=== PATIENT | male | born 1950 | race Caucasian/White ===

== ENCOUNTER → 2018-08-14 15:06 | Outpatient (CLI) | payer BC, MEDICARE, SELFPAY ==
--- NOTE | 2018-08-14 | DI.ECHO.S_ITS ---
[facility]---------+ [facility] +---------+ : : [address] : [address] : : : : [address] : : : : Phone: [phone]+ Echocardiogram Report + + :Name: KIT GAGE Study Date: 08/14/2018 Height: 69 in : :[facility] Weight: 177 lb : : Gender: Male BSA: 2.0 m2 : :: 1950 Age: 68 yrs BP: 140/72 mmHg: :Reason For Study: ASHD : :Ordering Physician: Damon : :Niels New Performed By: Ester Benitez : :Referring: Dr. Qian May : + + Interpretation Summary 1) Mildly enlarged left ventricle with mildly to moderately reduced systolic function (EF 40-45%). 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 3) Grossly, normal right ventricular size and function. 4) Mild aortic regurgitation present. 5) Compared to the Echo done done 02/18/2018, LVEF has improved from 35-40% to 40-45% on this study. Procedure: A two-dimensional transthoracic echocardiogram with color flow and Doppler was performed. The study quality was technically adequate. Comparison is made with the echocardiogram of 02-18-18. The patient was in normal sinus rhythm during the exam. Left Ventricle: The left ventricle is mild-moderately dilated. There is normal left ventricular wall thickness. Left ventricular systolic function is mild to moderately reduced. The ejection fraction is estimated to be 40-45%. 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 Diastolic parameters suggest a pseudonormalization pattern, consistent with probable elevated filling pressures. Right Ventricle: The right ventricle grossly appears normal in size with probable normal systolic function. Atria: The left atrium is severely dilated. Right atrial size is normal. The interatrial septum is intact with no evidence for an atrial septal defect. Mitral Valve: The mitral valve is grossly normal. There is mild mitral regurgitation. Aortic Valve: The aortic valve is trileaflet. The aortic valve opens well. There is no aortic valve stenosis. There is mild aortic regurgitation. Tricuspid Valve: The tricuspid valve is normal in structure and function. There is a trace or physiologic amount of tricuspid regurgitation. The right ventricular systolic pressure is estimated to be at least 25 mmHg based on an estimated right atrial pressure of 3 mm Hg. Pulmonic Valve: The pulmonic valve is normal in structure and function. There is a trace or physiologic amount of pulmonic regurgitation. Pericardium/ Pleura There is no pericardial effusion. There is no pleural effusion. MMode/2D Measurements & Calculations LVIDd: 6.3 cm Ao root diam: 3.6 cm LVIDs: 4.9 cm Aortic Jxn: 2.8 cm FS: 22.6 % asc Aorta Diam: 3.6 cm EPSS: 1.3 cm Ao Arch Diam (Prox Trans): 3.4 cm IVSd: 0.89 cm LVPWd: 1.0 cm LV luciano. diameter/BSA (cm/m^2): 3.2 LV sys. diameter/BSA (cm/m^2): 2.5 LA dimension: 5.1 cm RA long axis: 4.7 cm LA A2 area: 26.2 cm2 RA area: 18.9 cm2 LA A4 area: 25.2 cm2 RA vol: 65.0 ml LA length (vol): 5.7 cm RA : 33.1 ml/m2 LA vol: 98.5 ml IVC diam: 1.3 cm LA vol index: 50.2 ml/m2 RVDd major: 7.1 cm RVD1 (basal): 4.5 cm RVD2 (mid): 3.6 cm Doppler Measurements & Calculations Ao V2 max: 178.0 cm/sec MV E max christopher: 68.0 cm/sec Ao V2 mean: 121.9 cm/sec MV A max christopher: 75.0 cm/sec Ao max P.7 mmHg MV E/A: 0.91 Ao mean P.8 mmHg Med Peak E' Christopher: 4.6 cm/sec Ao V2 VTI: 40.6 cm E/E' med: 14.7 Lat Peak E' Christopher: 9.5 cm/sec E/E' lat: 7.2 E/e' average: 10.9 MV dec time: 0.15 sec MV P1/2t: 45.6 msec TR max christopher: 233.3 cm/sec MV P1/2t max christopher: 67.5 cm/sec TR max P.8 mmHg MVA(P1/2t): 4.8 cm2 PA V2 max: 92.1 cm/sec PA V2 mean: 55.5 cm/sec PA mean P.5 mmHg PA Accel Time: 0.11 sec Reading Physician:05:07 PM
== END ==
PROVIDERS: Family Provider Family Medicine Geriatric Medicine; PCP Family Medicine Geriatric Medicine; Visit Provider Internal Medicine Cardiovascular Disease
DX: I08.0 Rheumatic disorders of both mitral and aortic valves (principal); I25.10 Atherosclerotic heart disease of native coronary artery without angina pectoris
CPT/HCPCS: 93306

== ENCOUNTER → 2018-11-03 20:57 | Outpatient (REF) | payer BC, MEDICARE, SELFPAY ==
[2018-11-03 21:31] LABS: Add Manual Diff / Slide Review NO; Basophils Absolute Auto 100 /uL (0-100); Basophils Percent Auto 0.8 % (0-2); Eosinophils Absolute Auto 200 /uL (0-450); Eosinophils Percent Auto 2.3 % (2-4); Hematocrit 41.5 % (41-53); Hemoglobin 14.3 g/dL (13.5-17.5); Lymphocytes Absolute Auto 2000 /uL (1100-4500); Lymphocytes Percent Auto 28.7 % (25-40); Mean Corpuscular HGB Conc 34.4 % (30-36); Mean Corpuscular Hemoglobin 31.9 PG (26-34); Mean Corpuscular Volume 92.6 fL (80-100); Monocytes Absolute Auto 500 /uL (0-900); Monocytes Percent Auto 7.1 % (3-14); Neutrophils Absolute Auto 4300 /uL (1500-7000); Neutrophils Percent Auto 61.1 % (50-75); Platelet Count 288 X10^3/uL (150-400); Red Blood Cell Count 4.48 X10^6/uL (4.5-5.9); Red Cell Distribution Width 13.4 % (11.6-14.8)
[2018-11-03 21:42] LABS: Alanine Aminotransferase 45 IU/L (21-72); Aspartate Aminotransferase 35 IU/L (17-59); BUN Creatinine Ratio 17.1 (6-22); Blood Urea Nitrogen 12 mg/dL (9-20); Calcium 9.4 mg/dL (8.4-10.2); Carbon Dioxide 31 mmol/L (22-32); Chloride 101 mmol/L (98-107); Cholesterol 151 mg/dL (140-199); Estimated Glomerular Filt Rate > 60.0 mL/min (>60); Glucose 162 mg/dL (80-110); HDL Cholesterol 47 mg/dL (40-60); HEMOLYSIS < 15 (0-50); LDL Cholesterol Calculated 86 mg/dL (<100); Potassium 4.2 mmol/L (3.4-5.1); Sodium 141 mmol/L (137-145); Triglycerides 88 mg/dL (35-150)
[2018-11-03 22:10] LABS: Hemoglobin A1C% w Est Avg Glu 7.1 % (4.0-6.0)
== END ==
LOC: LAB 20:57
PROVIDERS: Family Provider Family Medicine Geriatric Medicine; PCP Family Medicine Geriatric Medicine; Visit Provider Family Medicine Geriatric Medicine
DX: I10 Essential (primary) hypertension (principal); E78.5 Hyperlipidemia, unspecified; I50.9 Heart failure, unspecified; E11.9 Type 2 diabetes mellitus without complications
CPT/HCPCS: 36415; 80048; 80061; 83036; 84450; 84460; 85025